=== PATIENT | female | born 1945 | race Caucasian/White ===

== ENCOUNTER → 2016-11-12 | Outpatient (CLI) | payer BC ==
[~2016-11-12] MED LIST: ASCA500 PO; ASPI81TA28 PO; CALCTAB7 PO; CYM/30 PO; GARL400T4 PO; IBUP-1050 PO; LISI-787 PO; LPT40 PO; MAGNTAB10 PO; MULT-190 PO; MULT-729 PO; OMEP20TA14 PO; QUET5TAB PO; ULT/50 PO
--- NOTE | 2016-11-12 16:04 | MAMMOGRAPHY REPORT ---
BILATERAL DIGITAL SCREENING MAMMOGRAM WITH CAD: 11/12/2016 CLINICAL HISTORY: Routine screening. Patient has no complaints. TECHNIQUE: Bilateral CC and MLO views were obtained. Current study was also evaluated with a Comput er Aided Detection (CAD) system. COMPARISON: Comparison is made to exams dated: 11/10/2015 mammogram, 11/09/2014 mammogram, 11/08/2013 saeid mogram, 11/06/2012 mammogram - [facility], 12/09/2008, and 12/15/2007. BREAST COMPOSITION: There are scattered areas of fibroglandular density in both breasts. FINDINGS: There is a 9 mm asymmetry in the superior, middle to posterior left breast, best seen on the MLO view. Although this could represent normal overlapping fibroglandular tissue, additional sp ot compression tomosynthesis views and possibly ultrasound are recommended. No other suspicious mass, architectural distortion or cluster of microcalcifications is seen. IMPRESSION: ACR BI-RADS CATEGORY 0: INCOMPLETE EVALUATION: NEED ADDITIONAL IMAGING EVALUATION The 9 mm asymmetry in the superior left breast needs additional evaluation. The patient will be called to schedule an appointment. Approximately 10% of breast cancers are not detected with mammography. A negative mammographic repor t should not delay biopsy if a clinically suggestive mass is present. Kayla Luna M.D. ay/:11/12/2016 15:46:04 Book Editor: Shante RILEY(Jesus)(Jo Ann), [facility] letter sent: Addl Imaging 0 BI-RADS Code: ACR BI-RADS Category 0: Incomplete Evaluation: Need Additional Imaging Evaluation
== END | disposition home or self-care (01) ==
LOC: C.MAMM 10:11
PROVIDERS: ATTEND Family Medicine
DX: Z12.31 Encounter for screening mammogram for malignant neoplasm of breast (principal); N64.89 Other specified disorders of breast

== ENCOUNTER → 2016-11-18 | Outpatient (CLI) | payer BC ==
[2016-11-18 17:52] LABS: BLOOD UREA NITROGEN 17 mg/dl (7-18); CALCIUM 9.3 mg/dl (8.5-10.1); CARBON DIOXIDE 29 mmol/L (21-32); CHLORIDE 105 mmol/L (98-107); GLUCOSE 118 mg/dl (70-99); POTASSIUM 3.3 mmol/L (3.5-5.1); SODIUM 144 mmol/L (136-145)
== END | disposition home or self-care (01) ==
LOC: C.LABPVFM 11:01
PROVIDERS: ATTEND Family Medicine
DX: E87.6 Hypokalemia (principal)

== ENCOUNTER → 2016-11-27 | Outpatient (CLI) | payer BC ==
--- NOTE | 2016-11-27 13:35 | MAMMOGRAPHY REPORT ---
UNILATERAL LEFT DIGITAL DIAGNOSTIC MAMMOGRAM TOMOSYNTHESIS AND TARGETED LEFT ULTRASOUND: 11/27/2016 CLINICAL HISTORY: 71 year-old woman called back from screening mammography for a 7 mm asymmetry in t he superior middle one third of the left breast, best seen on the MLO view. TECHNIQUE: Spot compression CC and MLO 2-D digital and tomosynthesis images of the left breast were obtained. COMPARISON: Comparison is made to exams dated: 11/12/2016 mammogram, 11/10/2015 mammogram, and 11/09/2014 mammogram - [facility]. BREAST COMPOSITION: There are scattered areas of fibroglandular density in the left breast. FINDINGS: The additional spot compression views of the left breast demonstrate complete effacement o f the 9 mm nodular asymmetry in the superior middle one third of the breast, best seen on the MLO vi ew. The parenchymal pattern on the spot compression MLO view appears very similar to prior availabl e mammograms suggesting it represents the patient's baseline. There is no focal area of architectur al distortion or a cluster of suspicious microcalcification. Reviewed ultrasound was performed in the superior left breast including the retroareolar breast. No rmal fibroglandular tissue is seen without a discrete solid or cystic mass. IMPRESSION: ACR BI-RADS CATEGORY 2: BENIGN, TARGETED ULTRASOUND ACR BI-RADS CATEGORY 2: BENIGN Effacement of the nodular asymmetry in the superior left breast, and no suspicious sonographic corre late identified. This most likely represented normal overlapping fibroglandular tissue. There is n o mammographic or targeted sonographic evidence of malignancy. A 1 year screening mammogram is recom mended. The patient has been verbally notified of the results. Approximately 10% of breast cancers are not detected with mammography. A negative mammographic repor t should not delay biopsy if a clinically suggestive mass is present. Kayla Luna M.D. ay/:11/27/2016 12:40:07 Funeral Pre Arrangement Counselor: Annabella ROME)(Jo Ann), [facility] letter sent: Normal 1/2 BI-RADS Code: ACR BI-RADS Category 2: Benign Ultrasound BI-RADS: ACR BI-RADS Category 2: Benign
== END | disposition home or self-care (01) ==
LOC: C.MAMM 10:28
PROVIDERS: ATTEND Family Medicine
DX: N64.9 Disorder of breast, unspecified (principal)

== ENCOUNTER → 2017-03-26 | Outpatient (CLI) | payer BC ==
[2017-03-26 17:25] LABS: BLOOD UREA NITROGEN 19 mg/dl (7-18); BUN/CREATININE RATIO 17.4 (10-20); CALCIUM 9.2 mg/dl (8.5-10.1); CARBON DIOXIDE 28 mmol/L (21-32); CHLORIDE 109 mmol/L (98-107); GLUCOSE 94 mg/dl (70-99); POTASSIUM 4.1 mmol/L (3.5-5.1); SODIUM 143 mmol/L (136-145)
[2017-03-26 17:28] LABS: CHOLESTEROL 173 mg/dl (0-200); CHOLESTEROL/HDL RATIO 3.6; HDL CHOLESTEROL 48 mg/dl; LDL CHOLESTEROL CALCULATED 87 mg/dl; TRIGLYCERIDES 191 mg/dl (0-150); VERY LOW DENSITY LIPOPROT CALC 38 mg/dl
[2017-03-26 18:25] LABS: LYME DISEASE AB IGG NEG (NEG); LYME DISEASE AB IGM NEG (NEG)
== END | disposition home or self-care (01) ==
LOC: C.LABPVFM 14:25
PROVIDERS: ATTEND Family Medicine
DX: Z00.00 Encounter for general adult medical examination without abnormal findings (principal); E78.2 Mixed hyperlipidemia; I10 Essential (primary) hypertension

== ENCOUNTER → 2017-09-22 | Outpatient (CLI) | payer BC ==
[2017-09-22 13:11] LABS: BLOOD UREA NITROGEN 17 mg/dl (7-18); BUN/CREATININE RATIO 15.7 (10-20); CALCIUM 9.3 mg/dl (8.5-10.1); CARBON DIOXIDE 30 mmol/L (21-32); CHLORIDE 107 mmol/L (98-107); CREATININE 1.11 mg/dl (0.60-1.20); GLUCOSE 104 mg/dl (70-99); POTASSIUM 3.6 mmol/L (3.5-5.1); SODIUM 142 mmol/L (136-145)
== END | disposition home or self-care (01) ==
LOC: C.LABPVFM 09:37
PROVIDERS: ATTEND Family Medicine
DX: I10 Essential (primary) hypertension (principal)

== ENCOUNTER → 2017-11-14 | Outpatient (CLI) | payer BC ==
--- NOTE | 2017-11-14 15:27 | MAMMOGRAPHY REPORT ---
BILATERAL DIGITAL SCREENING MAMMOGRAM TOMOSYNTHESIS WITH CAD: 11/14/2017 CLINICAL HISTORY: Routine screening. TECHNIQUE: Breast tomosynthesis in addition to standard 2D mammography was performed. Current study was also evaluated with a Computer Aided Detection (CAD) system. COMPARISON: Comparison is made to exams dated: 11/27/2016 mammogram, 11/12/2016 mammogram, 11/10/2015 saeid mogram, 11/09/2014 mammogram, 11/08/2013 mammogram, and 11/06/2012 mammogram - [facility] . BREAST COMPOSITION: There are scattered areas of fibroglandular density in both breasts. FINDINGS: No suspicious masses, calcifications, or areas of architectural distortion are noted in ei ther breast. There has been no significant interval change compared to prior exams. IMPRESSION: ACR BI-RADS CATEGORY 1: NEGATIVE There is no mammographic evidence of malignancy. A 1 year screening mammogram is recommended. The pa tient will receive written notification of the results. Approximately 10% of breast cancers are not detected with mammography. A negative mammographic report should not delay biopsy if a clinically suggestive mass is present. Cata Tan M.D. ah/:11/14/2017 14:22:23 Gift Basket Packer: Brooks RILEY(Jesus)(M), [facility] letter sent: Normal 1/2 BI-RADS Code: ACR BI-RADS Category 1: Negative
== END | disposition home or self-care (01) ==
LOC: C.MAMM 10:06
PROVIDERS: ATTEND Family Medicine
DX: Z12.31 Encounter for screening mammogram for malignant neoplasm of breast (principal)

== ENCOUNTER 2023-11-04 07:03 | Observation (INO) ==
--- NOTE | 2023-10-01 11:40 | PAT Medication Instructions ---
Medication Instructions Date of Service October 01, 2023 Home Medications Medication Instructions Recorded aspirin 81 mg tablet,delayed 81 mg PO QAM #30 tabs 07/06/19 release clonazepam 0.5 mg tablet (Klonopin) 0.5 mg PO DAILY PRN depression #60 07/06/19 tabs duloxetine 30 mg capsule,delayed 30 mg PO QAM #30 caps 07/06/19 release (Cymbalta) ibuprofen 200 mg tablet (Advil) 200 mg PO Q6H PRN pain #120 tabs 07/06/19 vbgelybt-zhrunlb-gwt-iron 18 mg-FA 1 tab PO QAM #30 tabs 07/06/19 400 mcg-vit K 80 mcg-hrb#244 tablet ([employer]) quetiapine 50 mg tablet (Seroquel) 50 mg PO HS #60 tabs 07/06/19 vit C,E,zinc,copper-hyadq9l 250 1 cap PO QAM #30 caps 07/06/19 mg-lutein 5 mg-zeaxanthin 1 mg capsule (Ocuvite Adult 50 Plus) aspirin 81 mg tablet,delayed release 81 mg PO QAM clonazepam 0.5 mg tablet (Klonopin) 0.5 mg PO DAILY PRN duloxetine 30 mg capsule,delayed release (Cymbalta) 30 mg PO QAM ibuprofen 200 mg tablet (Advil) 200 mg PO Q6H PRN eorcovre-culremk-fea-iron 18 mg-FA 400 mcg-vit K 80 mcg-hrb#244 tablet ([employer]) 1 tab PO QAM quetiapine 50 mg tablet (Seroquel) 50 mg PO HS vit C,E,zinc,copper-rwqky9y 250 mg-lutein 5 mg-zeaxanthin 1 mg capsule (Ocuvite Adult 50 Plus) 1 cap PO QAM Lactobacillus acidophilus 250 million cell capsule 100 mmu cells PO QAM mecobalamin (vitamin B12) 1,000 mcg chewable tablet 1,000 mcg PO QAM atorvastatin 40 mg tablet 40 mg PO QAM garlic 400 mg tablet 400 mg PO QAM lisinopril 10 mg-hydrochlorothiazide 12.5 mg tablet 1 tab PO QAM magnesium oxide 400 mg PO QAM omeprazole 20 mg tablet,delayed release 20 mg PO QAM potassium chloride 20 mEq tablet,extended release 20 meq PO QAM Check with prescriber, continue as usual if prescriber has no other recommendations quetiapine 50 mg tablet (Seroquel) 50 mg PO HS Continue as directed clonazepam 0.5 mg tablet (Klonopin) 0.5 mg PO DAILY PRN(if needed) ASK your surgeon for instructions ibuprofen 200 mg tablet (Advil) 200 mg PO Q6H PRN ASK your prescriber and surgeon aspirin 81 mg tablet,delayed release 81 mg PO QAM STOP taking 2 weeks before surgery (or as soon as possible if surgery is within 2 weeks) vit C,E,zinc,copper-pkelz0w 250 mg-lutein 5 mg-zeaxanthin 1 mg capsule (Ocuvite Adult 50 Plus) 1 cap PO QAM garlic 400 mg tablet 400 mg PO QAM DO NOT take the morning of surgery awfkmgdo-ikkseii-wfr-iron 18 mg-FA 400 mcg-vit K 80 mcg-hrb#244 tablet ([employer]) 1 tab PO QAM Lactobacillus acidophilus 250 million cell capsule 100 mmu cells PO QAM mecobalamin (vitamin B12) 1,000 mcg chewable tablet 1,000 mcg PO QAM lisinopril 10 mg-hydrochlorothiazide 12.5 mg tablet 1 tab PO QAM magnesium oxide 400 mg PO QAM potassium chloride 20 mEq tablet,extended release 20 meq PO QAM Take morning of surgery With a small sip of water, OTHERWISE NOTHING TO EAT OR DRINK AFTER MIDNIGHT: duloxetine 30 mg capsule,delayed release (Cymbalta) 30 mg PO QAM atorvastatin 40 mg tablet 40 mg PO QAM omeprazole 20 mg tablet,delayed release 20 mg PO QAM Other Notes If you have any questions please call us at [phone] or [phone] or [phone] or [phone]
--- NOTE | 2023-10-10 09:45 | Anesthesiology Consultation ---
Date of Service October 10, 2023 Assessment & Plan (1) Encounter for pre-operative examination: Chart Review Chart Review: Acceptable Risk for Surgery (pending routine PCP visit ) and Patient seen in Pre Admission Testing - Awaiting routine PCP appt 10/27/23 ([place]) - Patient is NOT an ideal OPJ candidate due to age and patient wanting to stay overnight (surgeon's office change patient to 23 hour obs) Per PAT appt on 10/10/23, no recent illness/disease exposures, illness related symptoms, or recent illness/disease positive tests. Will leave to surgeon's discretion if preop Covid testing needed Teaching & Discussion Pre-Anesthesia Teaching/Discussion Notes: Instructed NPO after midnight before surgery,except medications with 15 cc of water. Medication instructions provided according to the PAT guidelines. History Surgery Operation Date: 11/04/23 11:25 Proposed Procedures p Right Reverse Total Shoulder Arthroplasty - Pablo Caldwell, Height/Weight Height: 5 ft 5 in Weight: 71.6 kg Allergies Allergy/AdvReac Type Severity Reaction Status Date / Time Sulfa (Sulfonamide Allergy Severe "SULFA Verified 09/16/23 09:48 Antibiotics) DRUGS": RASH AND ANAPHYLAXIS acetaminophen [From Percocet] Allergy Unknown Flushing. Verified 10/01/23 09:04 Rash oxycodone [From Percocet] Allergy Unknown Flushing. Verified 10/01/23 09:04 Rash Medications Home Medications Medication Instructions Recorded Confirmed Last Taken aspirin 81 mg tablet,delayed 81 mg PO QAM #30 tabs 07/06/19 10/01/23 Unknown release clonazepam 0.5 mg tablet (Klonopin) 0.5 mg PO DAILY PRN depression #60 07/06/19 10/01/23 Unknown tabs duloxetine 30 mg capsule,delayed 30 mg PO QAM #30 caps 07/06/19 10/01/23 Unknown release (Cymbalta) ibuprofen 200 mg tablet (Advil) 200 mg PO Q6H PRN pain #120 tabs 07/06/19 Unknown gcyxslsd-etmezxo-gva-iron 18 mg-FA 1 tab PO QAM #30 tabs 07/06/19 10/01/23 Unknown 400 mcg-vit K 80 mcg-hrb#244 tablet ([employer]) quetiapine 50 mg tablet (Seroquel) 50 mg PO HS #60 tabs 07/06/19 10/01/23 Unknown vit C,E,zinc,copper-ofahk7h 250 1 cap PO QAM #30 caps 07/06/19 10/01/23 Unknown mg-lutein 5 mg-zeaxanthin 1 mg capsule (Ocuvite Adult 50 Plus) Lactobacillus acidophilus 250 100 mmu cells PO QAM 10/24/22 10/01/23 Unknown million cell capsule mecobalamin (vitamin B12) 1,000 1,000 mcg PO QAM 10/24/22 10/01/23 Unknown mcg chewable tablet atorvastatin 40 mg tablet 40 mg PO QAM 10/01/23 10/01/23 Unknown garlic 400 mg tablet 400 mg PO QAM 10/01/23 10/01/23 Unknown lisinopril 10 1 tab PO QAM 10/01/23 10/01/23 Unknown mg-hydrochlorothiazide 12.5 mg tablet magnesium oxide 400 mg PO QAM 10/01/23 10/01/23 Unknown omeprazole 20 mg tablet,delayed 20 mg PO QAM 10/01/23 10/01/23 Unknown release potassium chloride 20 mEq 20 meq PO QAM 10/01/23 10/01/23 Unknown tablet,extended release Past Medical History Medical History (Updated 10/13/23 @ 09:05 by Kiarra Coughlin PA-C) Elevated hemoglobin A1c Per records- Hgb A1C 5.8 on 10/10/23 History of ectopic s/p salpingectomy GERD (gastroesophageal reflux disease) Well controlled and stable History of uterine cancer dx'd > 5 years ago. 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 echo "many many years ago" at [place] Hx of rheumatic fever as a child No significant murmur noted at PAT exam 10/10/23 HTN (hypertension) Anxiety (12/07/12) Peripheral neuropathy Restless leg syndrome Exercise / Class Metabolic Activity II 4-5 Yardwork/Stairs/Walk up hill (one flight of stairs - no chest pain or SOB ) Past Family History Family History Family/Other Breast cancer cousin Father Myocardial infarction Brother Diabetes Myocardial infarction Other No family history of adverse response to anesthesia Denies family history of Ovarian cancer Prostate cancer Colorectal cancer Past Surgical History Surgical History History of laparoscopy History of History of total abdominal hysterectomy and bilateral salpingo-oophorectomy [place] teeth extracted Previous back surgery x 3 H/O shoulder surgery BL Past Anesthesia History No Hx of Anesthesia Complications and No Family Hx of Anesthesia Complications History of PONV No Hx of PONV and No Hx of Motion Sickness Social History Smoking Status: Never smoker Do You Dip or Chew Tobacco: No Hx Alcohol Use: No Hx Substance Use: No substance use type: does not use Review of Systems - Mild STEELE- rarely- with strenuous activity- works on farm/hunts/fishes/yardwork - S/p blood transfusion with ectopic Patient denies chest pain, shortness of breath, cough, wheezing, palpitations. No hx of seizures, stroke, [place], apnea/snoring. No hx of blood clots Physical Exam Vital Signs VITALS BP 150/82 (manually) P 87 TEMP 97.7 SP02 97% RESP 16 Constitutional no acute distress ENMT Mouth: no TMJ clicking Thyromental Distance: > or= 3.5 Finger Breadths (3.5) Mallampati Class: II Neck neck extension not limited Respiratory normal respiratory effort; no respiratory distress Auscultation: lungs clear to auscultation bilaterally; no wheezes Cardiovascular Rate/Rhythm: regular rate and regular rhythm Heart Sounds: no murmur Vessels: no carotid bruit No significant murmur noted at PAT exam 10/10/23 Musculoskeletal Spine: + pain with cervical ROM Extremities: extremities normal to inspection Psychiatric Orientation: alert Lab Results Anesthesia Preop Results Results Anesthesia Widget: WBC 6.75 K/ul (4.8-10.8) 10/10/23 Hgb 13.8 g/dl (12.0-16.0) 10/10/23 Hct 38.9 % (37.0-47.0) 10/10/23 Plt 154 K/uL (130-400) 10/10/23 Na 142 mmol/L (136-145) 10/10/23 K 3.5 mmol/L (3.5-5.1) 10/10/23 Cl 106 mmol/L (98-107) 10/10/23 CO2 30 mmol/L (21-32) 10/10/23 BUN 18 mg/dl (6-23) 10/10/23 Creat 0.89 mg/dl (0.6-1.2) 10/10/23 Glucose Level 114 mg/dl (70-99(Fasting)) H 10/10/23 PT 10.9 Seconds (9.0-12.0) 10/10/23 PTT 25 Seconds (21-31) 10/10/23 INR 1.0 (0.9-1.1) 10/10/23 HA1c 5.8 % (4.5-5.6) H 10/10/23 Blood Type A Positive 10/10/23 Antibody Screen NEGATIVE 10/10/23 Testing Electrocardiogram Date: 10/10/23 Findings: + NSR @ (88bpm) Suspect V2-V3 reversal Low voltage QRS Poor R wave progression, consider anterior [place] vs lead placement vs LVH When compared to EKG from April 25, 2016- PACs are no longer present, questionable change in initial forces of anterior leads per cardio (Spoke with Dr. Colin- recommends repeat EKG DOS) Chest X-Ray Date: 10/10/23 FINDINGS: Cardiomediastinal and hilar silhouettes are within normal limits. No pneumothorax, pleural effusion, airspace consolidation or pulmonary edema. Mild chronic interstitial coarsening of the lung bases. Surgical anchor within the right humeral head. Bones appear grossly intact. IMPRESSION: No acute process.
--- NOTE | 2023-10-30 12:47 | History & Physical Report ---
Date of Service October 30, 2023 Assessment & Plan (1) Rotator cuff arthropathy of right shoulder: We will proceed with a right reverse shoulder arthroplasty. Postoperatively she will be seen placed in a sling and kept overnight hospital for postop medical management. She plans to have the hospital set up home health before discharge. History of Present Illness Chief Complaint: Cuff tear arthropathy of right shoulder. Primary Care Provider: Albina Dow MD Mayelin is a pleasant 77-year-old female who had a right rotator cuff repair done by Dr. Zaragoza in 2008. She initially did well with that. She then began having more pain. She was then pulling a ripcord. Her right shoulder has been doing worse and worse. She is unable to sleep at night. She is having trouble doing anything away from her body or up overhead. She has a lot of weakness in her shoulder. X-ray shows signs of cuff tear arthropathy. I sent her for an MRI. 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 After failed conservative treatment, she has elected proceed with a right reverse shoulder arthroplasty. Allergies Allergy/AdvReac Type Severity Reaction Status Date / Time Sulfa (Sulfonamide Allergy Severe "SULFA Verified 10/27/23 09:03 Antibiotics) DRUGS": RASH AND ANAPHYLAXIS acetaminophen [From Percocet] Allergy Unknown Flushing. Verified 10/27/23 09:03 Rash oxycodone [From Percocet] Allergy Unknown Flushing. Verified 10/27/23 09:03 Rash Home Medications Medication Instructions Recorded Confirmed Type aspirin 81 mg tablet,delayed 81 mg PO QAM #30 tabs 07/06/19 10/27/23 Rx release ibuprofen 200 mg tablet (Advil) 200 mg PO Q6H PRN pain #120 tabs 07/06/19 10/27/23 Rx muyjhbfr-jrnubdx-cqj-iron 18 mg-FA 1 tab PO QAM #30 tabs 07/06/19 10/27/23 Rx 400 mcg-vit K 80 mcg-hrb#244 tablet ([employer]) vit C,E,zinc,copper-enihc3s 250 1 cap PO QAM #30 caps 07/06/19 10/27/23 Rx mg-lutein 5 mg-zeaxanthin 1 mg capsule (Ocuvite Adult 50 Plus) Lactobacillus acidophilus 250 100 mmu cells PO QAM 10/24/22 10/27/23 History million cell capsule mecobalamin (vitamin B12) 1,000 1,000 mcg PO QAM 10/24/22 10/27/23 History mcg chewable tablet garlic 400 mg tablet 400 mg PO QAM 10/01/23 10/27/23 History lisinopril 10 1 tab PO QAM 10/01/23 10/27/23 History mg-hydrochlorothiazide 12.5 mg tablet magnesium oxide 400 mg PO QAM 10/01/23 10/27/23 History omeprazole 20 mg tablet,delayed 20 mg PO QAM 10/01/23 10/27/23 History release potassium chloride 20 mEq 20 meq PO QAM 10/01/23 10/27/23 History tablet,extended release atorvastatin 40 mg tablet 40 mg PO QAM #90 tabs 10/27/23 10/27/23 Rx clonazepam 0.5 mg tablet (Klonopin) 0.5 mg PO DAILY PRN depression #60 10/27/23 10/27/23 Rx tabs duloxetine 60 mg capsule,delayed 60 mg PO DAILY #90 caps 10/27/23 10/27/23 Rx release quetiapine 50 mg tablet (Seroquel) 50 mg PO HS #90 tabs 10/27/23 10/27/23 Rx Past Med/Surg History Medical History Elevated hemoglobin A1c Per records- Hgb A1C 5.8 on 10/10/23 History of ectopic s/p salpingectomy GERD (gastroesophageal reflux disease) Well controlled and stable History of uterine cancer dx'd > 5 years ago. 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 "many many years ago" at [place] Hx of rheumatic fever as a child No significant murmur noted at PAT exam 10/10/23 HTN (hypertension) Anxiety (12/07/12) Peripheral neuropathy Restless leg syndrome Surgical History History of laparoscopy History of History of total abdominal hysterectomy and bilateral salpingo-oophorectomy [place] teeth extracted Previous back surgery x 3 H/O shoulder surgery BL Family History Family/Other Breast cancer cousin Father Myocardial infarction Brother Diabetes Myocardial infarction Other No family history of adverse response to anesthesia Denies family history of Ovarian cancer Prostate cancer Colorectal cancer Social History Smoking Status: Never smoker Second Hand Exposure: No; Do You Dip or Chew Tobacco: No; Hx Alcohol Use: No Hx Substance Use: No Preferred Language: Tuvaluan Communication Ability: Effective Visual Impairment: Limited Hearing Ability: Normal Synthetic Cloth Binding Cutter Required: No Beliefs That Will Affect Care: None marital status: Current Living Situation: Spouse current occupational status: retired How many Children do You have: 2 How many Children do You have Comment: Pt. states that she had 1 miscarriage. Feels Safe at Home: Yes Safety Concerns: Feels Safe At This Time Childhood Exposure to Second-Hand Smoke: No Diet: regular caffeine: Yes (coffee) during the past year weight has: remained stable Dental Care, Regularly: Yes Physical Activity Frequency: Daily Seatbelt Use: always Sunscreen Use: No Do you think of yourself as: straight/heterosexual Gender Identity: Female Assistive Devices: Glasses Assistive Devices Comment: glasses for reading Review of Systems All systems reviewed & are unremarkable except as noted in HPI & below. Physical Exam On physical examination of the right shoulder, she has decreased range of motion weakness throughout.. Constitutional WD/WN, vitals as above Eyes PERRL, conjunctivae normal, anicteric sclerae ENMT external ear and nose normal, oropharynx normal Neck trachea midline, no thyromegaly Respiratory normal respiratory effort Cardiovascular RRR, no murmur, no edema Gastrointestinal (Abdomen) normal bowel sounds, soft, nontender, no hepatosplenomegaly Psychiatric A+Ox3, euthymic affect Results & Data Results & Data Laboratory Results . Diagnostic Findings X-rays of the right shoulder do show signs of osteoarthritis with a little bit of superior migration of the humeral head and the glenoid. MRI of the right shoulder shows a chronic retracted rotator cuff tear.. PG Care Time/CCT Total # of Minutes Spent Total Time Spent with Patient: Total time spent is greater than 50% in coordination of care (as documented) at patient's floor/unit and/or counseling patient: Coding Level of Care Code None Diagnoses Rotator cuff arthropathy of right shoulder M12.811
[~2023-11-04 07:03] MED LIST changes: +ACETAMINOPHEN 500 MG TAB PO SCH; +ALLERGY Noted to ORDERED Medication SCH; -ASCA500 PO; -ASPI81TA28 PO; +BUPIVACAINE 0.5 % 5 MG/1 ML PF 10ML VIAL ONE; -CALCTAB7 PO; -CYM/30 PO; +FAMOTIDINE 20 MG TAB PO SCH; +GABAPENTIN 300 MG CAP PO SCH; -GARL400T4 PO; -IBUP-1050 PO; -LISI-787 PO; -LPT40 PO; +LR 15ML/HR IV SCH; +LR 60ML/HR IV SCH; -MAGNTAB10 PO; -MULT-190 PO; -MULT-729 PO; -OMEP20TA14 PO; -QUET5TAB PO; +ROPIV 0.5% 246mg, Ketorolac 30mg, EPINEPHrine 0.5mg in NSS INFIL SCH; +TRANEXAMIC ACID 1,000 MG **IV Intra-op IV SCH; +TRANEXAMIC ACID 1,000 MG **IV Pre-op IV SCH; -ULT/50 PO; +ceFAZolin 2000MG 2,000 MG/15 ML SYR IV SCH
[2023-11-04] MEDS ORDERED: ACETAMINOPHEN 500 MG TAB ONE (07:20)
[2023-11-04] MEDS ORDERED: LIDOCAINE 2% 2 ML VIAL/AMP(20MG/ML) INFIL ONE (07:27)
[2023-11-04] MEDS ORDERED: DEXAMETHASONE SOD INJ 4 MG/ML VIAL ONE (07:27)
[2023-11-04] MEDS ORDERED: ROCURONIUM BROMIDE 10 MG/ML 5 ML VIAL IV ONE (07:27)
[2023-11-04] MEDS ORDERED: SUCCINYLCHOLINE CHLORIDE 20 MG/ML 10 ML VIAL IV ONE (07:27)
[2023-11-04] MEDS ORDERED: fentaNYL citrate PF 100 MCG/2 ML VIAL ONE (07:27)
[2023-11-04] MEDS ORDERED: PROPOFOL IV EMULSION 10 MG/ML 20 ML VIAL IV ONE (07:27)
[2023-11-04] MEDS ORDERED: MIDAZOLAM HCL 1 MG/ML 2ML VIAL ONE (07:27)
[2023-11-04] MEDS ORDERED: Nursing to Pharmacy Communication SCH (07:30)
[2023-11-04] MEDS ORDERED: ePHEDrine sulfate 50 MG/ML AMP ONE (07:37)
[2023-11-04] MEDS ORDERED: fentaNYL citrate PF 100 MCG/2 ML VIAL IV PRN (08:30)
[2023-11-04] MEDS ORDERED: ePHEDrine sulfate 50 MG/ML AMP IV PRN (08:30)
[2023-11-04] MEDS ORDERED: ONDANSETRON INJ 2 MG/ML 2 ML VIAL IV PRN ×2 (08:30→11:14)
[2023-11-04] MEDS ORDERED: HYDROmorphone INJ 1 MG/ML SYRINGE IV PRN (08:30)
[2023-11-04] MEDS ORDERED: ATROPINE SULFATE 0.1 MG/ML 10ML SYR IV PRN (08:30)
[2023-11-04] MEDS ORDERED: ORTHO JOINT ANESTHETIC ONE (08:34)
--- NOTE | 2023-11-04 08:39 | History & Physical Bridge Note ---
Date of Service November 04, 2023 History & Physical Bridge Note I have examined the patient, reviewed the History & Physical and in the interval since the performance of the History & Physical I have noted the following changes of clinical significance: no changes noted
[2023-11-04] MEDS ORDERED: GLYCOPYRROLATE 0.2 MG/ML VIAL ONE (09:26)
--- NOTE | 2023-11-04 10:01 | Operative Report ---
PG Post Operative Report Pre & Post Diagnosis Operation Date: 11/04/23 08:40 Pre-Op Diagnosis: Right Shoulder cuff tear arthropathy with tendinopathy long head of the biceps tendon Post-Op Diagnosis: Right Shoulder cuff tear arthropathy with tendinopathy long head of the biceps tendon I identified the patient and participated in the time-out.: Yes Procedure Operation Date: 11/04/23 08:40 Actual Procedures p Right Reverse Total Shoulder Arthroplasty(Right) with open biceps tenodesis as a distinct and separate procedure (modifier 59)- Pablo Caldwell DO Surgeon Pablo Caldwell DO Public Safety Teacher Woody Greene PA-C Estimated Blood Loss 150 Findings Consistent with Post-Op Diagnosis Specimens Right humeral head Description of Procedure A CPT code modifier 59: The long head of the biceps tendon was enlarged and inflamed consistent with tendinopathy. A tenodesis was opted. This was a separate and distinct portion of the procedure. For these reasons, a CPT code modifier 59 will be added to this case. Implants used: I used a [employer] Comprehensive reverse total shoulder arthroplasty system with a size 14 press fit micro humeral stem, a +6 offset humeral tray and a standard humeral bearing, a 25 mm baseplate with a 6.5 mm central screw and superior and inferior locking screws, and a size 36 mm eccentric glenosphere. Mayelin arrived at [facility] for the above procedure. She was seen in the preoperative holding area and the operative extremity was identified and signed. She was given a preoperative antibiotic, TXA, and an interscalene nerve block. She was taken back to the operating room, laid on table in supine position, and put under general anesthesia. She was then put into the beachchair position. The shoulder was then prepped and draped in sterile fashion. A timeout was done and the patient and the operative extremity was properly identified. A deltopectoral approach was used. Dissection was taken down through the fascia and the deltoid was retracted laterally and the conjoined tendon was retracted medially. The anterior shoulder was exposed. The biceps groove was opened up and the biceps tendon was examined extensively. The biceps tendon demonstrated enlargement and inflammatory changes consistent with longstanding inflammation in the context of osteoarthritis and cuff arthropathy. The long head of the biceps tendon was then tenodesed to the upper border of the pectoralis major. This was a separate and distinct portion of the procedure. The subscapularis was then directly released off the lesser tuberosity with a peel technique. The inferior capsule was released and the humeral head was dislocated. A canal finding reamer was sent down the center of the humeral canal. Sequential reaming up to a size 14 reamer was done. Off that reamer, a proximal humeral resection guide was placed. The proximal humerus was resected at 135 of inclination and 25 of retroversion. Osteophytes were then removed and the glenoid was exposed. Time was spent doing a complete capsular and labral release. The glenoid guide was then placed in the inferior aspect of the glenoid. A 3.2 mm Steinmann pin was then placed into the glenoid vault at 10 of inclination. The glenoid baseplate was then reamed. The final size 25 mm baseplate was then impacted in the place. A 6.5 mm central screw was then placed followed by superior and inferior locking screws. A 36 mm eccentric glenosphere was then impacted into place. Surrounding soft tissues were then injected with 100 cc an orthopedic pain control cocktail. The proximal humerus was then exposed. Sequential broaching of the humerus up to a size 14 broach was done. Off that b mijares a +6 offset humeral tray was trialed. The shoulder was then reduced, brought through a full range of motion, and felt to be stable. The shoulder was then dislocated and the broach was removed. The final size 14 micro press-fit humeral stem was then impacted into place. A standard humeral bearing was then snapped onto a +6 offset humeral tray. The humeral tray was then impacted onto the humeral stem. The shoulder was once again reduced, brought through a full range of motion, and felt to be stable. The subscapularis was then tenodesed back to the lesser tuberosity with transosseous FiberWire sutures and side to side sutures with the arm in 45 of external rotation. A dilute betadyne lavage was then done for 3 minutes. The joint was then irrigated with normal saline solution. Hemostasis was obtained. The interval was closed with 2-0 Vicryl suture. The skin was then closed with 2-0 Vicryl and kimberly. A Silverlon dressing was placed and the arm was rested in a regular arm sling. She was then extubated and transferred to a hospital bed. She taken to the postanesthesia care unit in stable condition. She tolerated the procedure well. Woody Greene PA-C, was present for the entire procedure. He was critical for patient positioning, prepping, draping, retraction exposure, wound closure and application of sterile dressing. I attest to the content of the Intraoperative Record and any orders documented therein. Any exceptions are noted below.
[2023-11-04] MEDS ORDERED: HYDROCODONE/ACETAMOPHEN 5/325MG TAB PO PRN (11:14)
[2023-11-04] MEDS ORDERED: SODIUM CHLORIDE 0.9% 1,000 ML IV SCH (11:14)
[2023-11-04] MEDS ORDERED: traMADol HCL 50 MG TABLET PO PRN (11:14)
[2023-11-04] MEDS ORDERED: clonazePAM 0.5 MG TAB PO PRN (11:14)
[2023-11-04] MEDS ORDERED: bisacodyL 10 MG SUPP PR PRN (11:14)
[2023-11-04] MEDS ORDERED: METOCLOPRAMIDE HCL INJ 5 MG/ML 2 ML VIAL IV PRN (11:14)
[2023-11-04] MEDS ORDERED: MAGNESIUM HYDROXIDE SUSP 30 ML UDC PO PRN (11:14)
[2023-11-04] MEDS ORDERED: NALOXONE HCL 0.4 MG/1 ML VIAL/CARP IV PRN (11:14)
[2023-11-04] MEDS ORDERED: HYDROmorphone INJ 0.5 MG/0.5 ML SYR IV PRN (11:14)
--- NOTE | 2023-11-04 11:26 | Electrocardiogram Report ---
Test Reason : Blood Pressure : / mmHG Vent. Rate : 093 BPM Atrial Rate : 093 BPM P-R Int : 208 ms QRS Dur : 086 ms QT Int : 380 ms P-R-T Axes : 035 005 062 degrees QTc Int : 472 ms Normal sinus rhythm Nonspecific T wave abnormality Prolonged QT Abnormal ECG When compared with ECG of 10-OCT-2023 10:01, Minimal criteria for Anterior infarct are no longer Present Nonspecific T wave abnormality now evident in Anterolateral leads Confirmed by Everardo Cooper ([id number]) on 11/04/2023 11:26:13 AM Referred By: Pablo Caldwell Confirmed By:Everardo Cooper
[2023-11-04] MEDS: KETOROLAC TROMETHAMINE 15 MG/ML VIAL IV SCH ×2 (11:57→17:04)
[2023-11-04] MEDS ORDERED: INFLUENZA VACCINE HIGH-DOSE (HD-IIV4) PF 65+ 0.7mL SYR IM ONE (12:48)
--- NOTE | 2023-11-04 14:26 | XRay Report ---
RIGHT SHOULDER 2 VIEWS CLINICAL HISTORY: Postoperative examination. FINDINGS: 2 portable views of the right shoulder are compared to study dated 06/17/2023. The skeletal structures are osteopenic. A right shoulder arthroplasty is in near anatomic alignment. No fracture i s seen. Skin clips, subcutaneous gas, and soft tissue swelling overlying the right shoulder are expec joaquin postsurgical changes. Atelectasis is noted at the right lung base. IMPRESSION: Expected postsurgical findings status post right shoulder arthroplasty. No fracture is se en. Electronically signed by: Robert Guan M.D. 11/04/2023 2:25 PM
--- NOTE | 2023-11-04 14:29 | Electrocardiogram Report ---
Test Reason : Blood Pressure : / mmHG Vent. Rate : 097 BPM Atrial Rate : 097 BPM P-R Int : 224 ms QRS Dur : 088 ms QT Int : 368 ms P-R-T Axes : 035 002 031 degrees QTc Int : 467 ms Sinus rhythm with 1st degree A-V block Septal infarct , age undetermined Abnormal ECG When compared with ECG of 04-NOV-2023 07:31, Septal infarct is now Present Confirmed by Everardo Cooper ([id number]) on 11/04/2023 2:29:25 PM Referred By: Pablo Caldwell Confirmed By:Everardo Cooper
[2023-11-04] MEDS: ACETAMINOPHEN 500 MG TAB PO SCH ×2 (15:05→21:20)
[2023-11-04] MEDS: ceFAZolin 2000MG 2,000 MG/15 ML SYR IV SCH (16:18)
--- NOTE | 2023-11-04 18:47 | Hospitalist Consultation ---
Date of Consultation November 04, 2023 Assessment & Plan (1) Sinus tachycardia: -Mild sinus tachycardia in 100s noted after surgery today -Most likely reactive/compensatory tachycardia in immediate postoperative setting given pain + component of volume depletion -Low suspicion for infectious process or postoperative arrhythmia at present -Telemetry monitoring overnight -Will check CBC, BMP + Mg in AM -Continue IVF repletion + pain control per orthopedics (2) Status post reverse total replacement of right shoulder: -Postoperative management per orthopedics (3) HTN (hypertension): -Mildly elevated BP since surgery, likely due to pain -Continue lisinopril/HCTZ, no medication adjustment needed -Anticipate some increase in BP with dexamethasone administration ordered by orthopedics, monitor BP (4) HLD (hyperlipidemia): -Continue atorvastatin (5) Prediabetes: -Deferring basal/bolus insulin -Diet-controlled -Check glucose in AM with BMP (6) Peripheral neuropathy: -Continue duloxetine, cyanocobalamin (7) Depression: -Continue duloxetine (8) Anxiety: -Continue duloxetine -Continue Klonopin PRN per home regimen (9) GERD (gastroesophageal reflux disease): -Continue pantoprazole (10) Insomnia: -Continue Seroquel (11) On aspirin at home: -Pt does take aspirin daily due to FMH of [place] in brother, though she was never advised by a physician to do this -May continue daily aspirin, currently little concern for bleeding/hemorrhage Plan FENGI: Regular Code status: Full DVT prophylaxis: Per orthopedic primary Isolation: None Unit: Medical/surgical with telemetry Disposition planning: Home with home health per orthopedic note Supervising Physician Co-Signing Physician Notes I personally saw and examined the patient. I independently reviewed the labs, EKG, imaging, problem list, medication list, past medical history and family history. I verified all de león points and agree with resident physician Dr Deepthi Mcfarland, with the following exceptions and/or additions: 78 year old female POD#0 Right Reverse Total Shoulder Arthroplasty. Estimated blood loss 150ml. No acute concerns or questions from the patient. Consulted for tachycardia. She denies any chest pain, shortness of breath or palpitations. EKG with sinus tachycardia. O/E HS increased rate, regular rhythm, no murmurs, Chest CTAB, Abdo SNT A/P Sinus tachycardia - suspect just post operative, no specific intervention needed, continue routine post operative IV fluids, routine pain control per orthopedics History of Present Illness Reason for Consultation: Tachycardia Requesting Physician: JESUS Medrano DO Attending Physician: Pablo Caldwell DO History of Present Illness Pt is 78 yo F with PMH HTN, HLD, prediabetes, peripheral neuropathy, GERD, depression, anxiety, previous R rotator cuff repair 2009 s/p R reverse TSA now POD0. Hospitalist consulted for tachycardia. Pt underwent R reverse TSA this AM, uncomplicated. Reports feeling well overall though has had some R shoulder pain all day which does improve with PRN medications. She has had elevated HR all day as well, though she denies palpitations, chest pain, lightheadedness or dyspnea. Denies any previous history of arrhythmias or FMH of such. She has been trying to hydrate throughout the day while also receiving IV fluids. No other acute complaints reported at time of evaluation. Allergies Allergy/AdvReac Type Severity Reaction Status Date / Time Sulfa (Sulfonamide Allergy Severe "SULFA Verified 11/04/23 07:25 Antibiotics) DRUGS": RASH AND ANAPHYLAXIS oxycodone [From Percocet] Allergy Unknown Flushing. Verified 11/04/23 07:25 Rash Home Medications Medication Instructions Recorded Confirmed Type aspirin 81 mg tablet,delayed 81 mg PO QAM #30 tabs 07/06/19 11/04/23 Rx release ibuprofen 200 mg tablet (Advil) 200 mg PO Q6H PRN pain #120 tabs 07/06/19 11/04/23 Rx inpuzpic-pzwlzht-olu-iron 18 mg-FA 1 tab PO QAM #30 tabs 07/06/19 11/04/23 Rx 400 mcg-vit K 80 mcg-hrb#244 tablet ([employer]) vit C,E,zinc,copper-chzdl6t 250 1 cap PO QAM #30 caps 07/06/19 11/04/23 Rx mg-lutein 5 mg-zeaxanthin 1 mg capsule (Ocuvite Adult 50 Plus) Lactobacillus acidophilus 250 100 mmu cells PO QAM 10/24/22 11/04/23 History million cell capsule mecobalamin (vitamin B12) 1,000 1,000 mcg PO QAM 10/24/22 11/04/23 History mcg chewable tablet garlic 400 mg tablet 400 mg PO QAM 10/01/23 11/04/23 History lisinopril 10 1 tab PO QAM 10/01/23 11/04/23 History mg-hydrochlorothiazide 12.5 mg tablet magnesium oxide 400 mg PO QAM 10/01/23 11/04/23 History omeprazole 20 mg tablet,delayed 20 mg PO QAM 10/01/23 11/04/23 History release potassium chloride 20 mEq 20 meq PO QAM 10/01/23 11/04/23 History tablet,extended release atorvastatin 40 mg tablet 40 mg PO QAM #90 tabs 10/27/23 11/04/23 Rx clonazepam 0.5 mg tablet (Klonopin) 0.5 mg PO DAILY PRN depression #60 10/27/23 11/04/23 Rx tabs duloxetine 60 mg capsule,delayed 60 mg PO DAILY #90 caps 10/27/23 11/04/23 Rx release quetiapine 50 mg tablet (Seroquel) 50 mg PO HS #90 tabs 10/27/23 11/04/23 Rx cefadroxil 500 mg capsule 500 mg PO BID 10 days #20 caps 11/05/23 Rx tramadol 50 mg tablet 50 mg PO Q6 PRN pain #30 tabs 11/05/23 Rx Patient History Medical History (Updated 11/04/23 @ 19:00 by Deepthi Mcfarland MD) Elevated hemoglobin A1c Per records- Hgb A1C 5.8 on 10/10/23 History of ectopic s/p salpingectomy GERD (gastroesophageal reflux disease) Well controlled and stable History of uterine cancer dx'd > 5 years ago. 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 [place]many many [place]" [place] Hx of rheumatic fever as a child No significant murmur noted at PAT exam 10/10/23 HTN (hypertension) Anxiety (12/07/12) Peripheral neuropathy Restless leg syndrome Surgical History (Updated 11/04/23 @ 10:01 by Pablo Caldwell DO) History of laparoscopy History of History of total abdominal hysterectomy and bilateral salpingo-oophorectomy [place] teeth extracted Previous back surgery x 3 H/O shoulder surgery BL Family History Family/Other Breast cancer cousin Father Myocardial infarction Brother Diabetes Myocardial infarction Other No family history of adverse response to anesthesia Denies family history of Ovarian cancer Prostate cancer Colorectal cancer Social History Smoking Status: Never smoker Second Hand Exposure: No; Do You Dip or Chew Tobacco: No; Hx Alcohol Use: No Hx Substance Use: No Preferred Language: Azeri Communication Ability: Effective Visual Impairment: Limited Hearing Ability: Normal Bottom Loader Required: No Beliefs That Will Affect Care: None marital status: Current Living Situation: Spouse current occupational status: retired How many Children do You have: 2 How many Children do You have Comment: Pt. states that she had 1 miscarriage. Feels Safe at Home: Yes Childhood Exposure to Second-Hand Smoke: No Diet: regular caffeine: Yes (coffee) during the past year weight has: remained stable Dental Care, Regularly: Yes Physical Activity Frequency: Daily Seatbelt Use: always Sunscreen Use: No Do you think of yourself as: straight/heterosexual Gender Identity: Female Assistive Devices: Raised Toilet Seat Review of Systems Review of Systems: Per HPI/Subjective Physical Exam Physical Exam: General: well-appearing, no acute distress HEENT: PERRL, EOMI, conjunctivae clear without injection, anicteric sclerae, mildly dry mucous membranes, clear oropharynx without exudate or erythema Neck: supple, trachea midline, no thyromegaly, no JVD, no cervical lymphadenopathy CV: Regular rhythm, tachycardic, normal S1 and S2, no murmurs Resp: CTAB, no increased work of breathing, no crackles or wheezes Abd: Soft, nontender, nondistended, no guarding or rebound, no hepatosplenomegaly MSK: R shoulder in sling, ROM testing deferred Neuro: AOx3, no focal motor or sensory deficits Skin: no rashes or lesions, warm and dry Ext: no LE peripheral edema or erythema, capillary refill <2s in all four extremities, 2+ LE peripheral pulses b/l Results & Data Results & Data Vital Signs (Past 12 Hours) Vital Signs Temp Pulse Pulse Resp BP Pulse Ox O2 Del Method 11/04/23 18:10 36.9 C 100 H 16 146/77 H 94 Room Air 11/04/23 15:06 36.8 C 107 H 16 159/81 H 94 Room Air 11/04/23 13:41 36.8 C 99 H 16 144/81 H 94 Room Air 11/04/23 12:37 85 16 143/77 H 94 Room Air 11/04/23 12:10 98 H 16 162/82 H 94 Room Air 11/04/23 11:40 36.4 C L 88 16 137/78 94 Room Air 11/04/23 11:10 36.5 C 91 H 16 152/73 H 93 Room Air 11/04/23 10:55 36.2 C L 91 H 18 144/75 H 95 Room Air 11/04/23 10:45 93 H 16 150/74 H 95 Room Air 11/04/23 10:35 92 H 18 155/73 H 100 Room Air 11/04/23 10:25 100 H 17 107/79 100 Oxymask 11/04/23 10:18 36.0 C L 105 H 17 143/67 H 100 Oxymask 11/04/23 07:29 37 C 92 H 20 176/87 H 94 Room Air O2 Flow Rate 11/04/23 18:10 11/04/23 15:06 11/04/23 13:41 11/04/23 12:37 11/04/23 12:10 11/04/23 11:40 11/04/23 11:10 11/04/23 10:55 11/04/23 10:45 11/04/23 10:35 11/04/23 10:25 5 11/04/23 10:18 5 11/04/23 07:29 Resident Activity Tracking Resident Involvement: Resident Care Provided Care Provided: Adult Hospital Medicine (3) HTN (hypertension) Hypertension type: primary hypertension Qualified Code(s): I10 - Essential ( primary) hypertension (7) Depression Active/Remission status: currently active Depression Type: major depressive disorder Major depression episode severity: mild Major depression recurrence: recurrent Qualified Code(s): F33.0 - Major depressive disorder, recurrent, mild
[2023-11-04] MEDS ORDERED: SENNA 8.6 MG TAB PO SCH (21:00)
[2023-11-04] MEDS ORDERED: QUEtiapine FUMARATE 25 MG TABLET PO SCH (21:00)
[2023-11-04] MEDS: DOCUSATE SODIUM 100 MG CAP PO SCH (21:59)
[2023-11-05] MEDS: ceFAZolin 2000MG 2,000 MG/15 ML SYR IV SCH (00:18)
[2023-11-05] MEDS: KETOROLAC TROMETHAMINE 15 MG/ML VIAL IV SCH ×2 (00:21→05:16)
[2023-11-05] MEDS: ACETAMINOPHEN 500 MG TAB PO SCH ×2 (05:16→15:06)
[2023-11-05 06:07] LABS: BUN Creatinine Ratio 22.9 (10-20); Calcium 9.1 mg/dl (8.6-10.3); Creatinine Clr Calc Pharmacy 48.7 ml/min; Est GFR (African American) 66.1 ml/min; Magnesium 1.7 mg/dl (1.7-2.4); Potassium 3.6 mmol/L (3.5-5.1)
[2023-11-05 06:21] LABS: Hematocrit (blood only) 32.9 % (37.0-47.0); Hemoglobin 11.5 g/dl (12.0-16.0); Mean Corpuscular Hemoglobin 31.6 pg (25.0-34.0); Mean Corpuscular Volume 90.4 fL (80.0-100.0); Mean Platelet Volume 10.6 fL (9.4-12.4); Platelet Count 154 K/uL (130-400); RDW Coefficient of Variation 13.3 % (11.5-14.5); RDW Standard Deviation 44.1 fL (36.4-46.3); Red Blood Count 3.64 M/uL (4.20-5.40); White Blood Count 8.88 K/ul (4.8-10.8)
[2023-11-05] MEDS ORDERED: dexAMETHasone 4 MG TAB PO SCH (08:00)
[2023-11-05] MEDS: DOCUSATE SODIUM 100 MG CAP PO SCH (08:41)
[2023-11-05] MEDS ORDERED: ATORVASTATIN 40 MG TAB PO SCH (09:00)
[2023-11-05] MEDS ORDERED: LISINOPRIL/HCTZ 10/12.5MG TAB PO SCH (09:00)
[2023-11-05] MEDS ORDERED: ASPIRIN 81 MG ECTAB PO SCH (09:00)
[2023-11-05] MEDS ORDERED: MAGNESIUM OXIDE 400 MG TAB PO SCH (09:00)
[2023-11-05] MEDS ORDERED: PANTOprazole 40 MG TAB PO SCH (09:00)
[2023-11-05] MEDS ORDERED: DULoxetine HCL 60 MG CAP PO SCH (09:00)
[2023-11-05] MEDS ORDERED: MULTIVITAMIN TAB PO SCH (09:00)
[2023-11-05] MEDS ORDERED: POTASSIUM CHLORIDE CRTAB 20 MEQ TABCR PO SCH (09:00)
--- NOTE | 2023-11-05 09:58 | Orthopedic Progress Note ---
Date of Service November 05, 2023 Assessment & Plan (1) Status post reverse total replacement of right shoulder: Overall she is doing quite well today with good pain control to the right shoulder. She will work with physical therapy later this morning to work on range of motion exercises of the right upper extremity. She is aware of the block may remain for the next 24 hours or so and should start wearing off here soon. She can be discharged home later this morning pending physical therapy evaluation. She will follow-up with orthopedics in 2 weeks for postoperative care. Subjective . Mayelin was seen and evaluated this morning resting comfortably in bed in no apparent distress. She does note that her dressing needed changed yesterday to some drainage but has been clean since. She notes that her arm is still numb from the block. She has been up and out of bed with no significant issues. She denies any other concerns today. Review of Systems All systems reviewed & are unremarkable except as noted in HPI & below. Physical Exam . On physical examination of the right shoulder, dressings are clean, dry, intact. Her arm is currently immobilized in a sling. Altered sensation secondary to nerve block. She has slight movement in all 5 digits. +2 radial pulse. Less than 2-second capillary refill. Neurovascular intact. Results & Data Results & Data Laboratory Results . Diagnostic Findings . Postoperative x-rays of the right shoulder show prosthesis to be in anatomical alignment with no signs of fracture complication or loosening. PG Care Time/CCT Total # of Minutes Spent Total Time Spent with Patient: Total time spent is greater than 50% in coordination of care (as documented) at patient's floor/unit and/or counseling patient: Coding Level of Care Code 76330 Post Operative Follow-Up Diagnoses Status post reverse total replacement of right shoulder Z96.611
--- NOTE | 2023-11-05 10:00 | Discharge Summary ---
Date of Service November 05, 2023 Admission HPI (Per Admitting) Mayelin is a pleasant 77-year-old female who had a right rotator cuff repair done by Dr. Zaragoza in 2008. She initially did well with that. She then began having more pain. She was then pulling a ripcord. Her right shoulder has been doing worse and worse. She is unable to sleep at night. She is having trouble doing anything away from her body or up overhead. She has a lot of weakness in her shoulder. X-ray shows signs of cuff tear arthropathy. I sent her for an MRI. 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 After failed conservative treatment, she has elected proceed with a right reverse shoulder arthroplasty. Admission Exam (Per Admitting) On physical examination of the right shoulder, she has decreased range of motion weakness throughout.. Principal Diagnosis Same as "Discharge Diagnosis" noted below under Discharge Instructions. Discharge Exam . On physical examination of the right shoulder, dressings are clean, dry, intact. Her arm is currently immobilized in a sling. Altered sensation secondary to nerve block. She has slight movement in all 5 digits. +2 radial pulse. Less than 2-second capillary refill. Neurovascular intact. Discharge Data Consultations 11/04/23 12:46 Consult Hospitalist Routine Procedures Performed Operation Date: 11/04/23 08:40 Actual Procedures p Right Reverse Total Shoulder Arthroplasty(Right) - Pablo Caldwell DO Ordered Studies 11/04/23 05:00 US - OR guided needle placemen Routine Hospital Course (1) Status post reverse total replacement of right shoulder: On November 04, 2023 Mayelin arrived at [facility] and underwent a right reverse total shoulder arthroplasty performed by Dr. Caldwell with no complications. She had a general anesthetic. Postoperatively, she was transferred to the PACU for immediate postoperative care and then transferred to the general orthopedic floor in stable condition. Her hospital course was uneventful. On postoperative day #1, her vital signs were stable and her pain was well-controlled. She participated well with physical therapy work on range of motion exercises. She was then discharged home in stable condition. She will follow-up in 2 weeks with orthopedics for postoperative care. PG Care Time/CCT Total # of Minutes Spent Total Time Spent with Patient: Total time spent is greater than 50% in coordination of care (as documented) at patient's floor/unit and/or counseling patient: Discharge Plan Discharge Items Patient Disposition: Home - Self-Care Reason For Visit: Right Shoulder Degenerative Joint Disease Discharge Diagnosis: Same Activity: Per Instructions section Non-emergency contact: Surgeon Call non-emergency contact if: your temperature is above 101.5, your wound has increased redness and your wound has increased drainage Follow-up/Referrals: Albina Dow MD [Primary Care Provider] - Diet: Regular Addtl Attending Provider Instructions: Activity and Therapy Recommendations: * If you are using [facility] then therapy will be provided at your home until they feel you have accomplished all of your goals. * If you are using [facility] then Physical Therapy will be provided until they feel you are ready to start Outpatient Physical Therapy. * If you are not using home therapy then Outpatient Physical Therapy should start about 3-5 days from your day of surgery. Therapy will last about 8-12 weeks * Wear your sling for 3 weeks, unless otherwise instructed. You may remove your sling to shower and to dress, but otherwise, you should be in your sling at all times, including while sleeping * The shoulder replacement is very stable and you can use your hand while in the sling * You were shown a series of exercises in the hospital. Do these exercises daily including the exercises you were shown in physical therapy. Medications: * Narcotic You will likely be sent home from the hospital with a prescription for the narcotic pain medication that worked best throughout your stay. * Cefadroxil -take the antibiotic twice a day for 10 days to help prevent infection. * Other medications may be prescribed for specific circumstances. If you have any questions, please call the office at . * Resume previous home medications unless otherwise instructed Dressing Care: Leave the Silverlon dressing in place for 7 days. After 7 days you may remove the dressing. If the incision is not draining then you may leave the kimberly open to air. If there is a little bit of drainage or if the kimberly are getting stuck on your clothing then cover the incision with a dry dressing. The kimberly will be removed at your 2 week follow-up appointment. Showering: You may shower with the Silverlon dressing in place. Do not let the shower spray hit the dressing directly. Pat the Silverlon dressing dry. If the dressing becomes wet underneath, then simply remove the dressing. Keep the incision dry until you are 7 days out from the day of surgery. After 7 days you may remove the Silverlon dressing and shower with the kimberly exposed. Let soapy water run over the kimberly and pat them dry. Do not scrub or soak the incision. Things To Watch For: * Drainage from the incision site that occurs more than one week after your surgery. * Increased redness at the incision site. * Fever above 102 degrees Fahrenheit. * Unusual chest pain or shortness of breath. * Call [facility] at with any of the above problems Follow-Up Visit: Follow-up with Dr. Caldwell's PA (Pablo Castro) 2-3 weeks after your day of surgery. He will remove your kimberly and answer any questions. If you have any additional questions or concerns, Dr Caldwell is usually in the office at the same time and will be available An appointment was probably scheduled when you signed-up for surgery in the office. If you have any questions call More detailed instructions as well as Frequently Asked Questions were provided in a folder by our office when you signed-up for surgery. Please review these instructions when you get home. If you have any further questions or concerns, please feel free to call the office at [phone] Pending Studies at Discharge: No Stand-Alone Forms: [facility], Smoking Cessation Medications and DC Order Prescriptions: New tramadol 50 mg Tablet 50 mg PO Q6 PRN (Reason: pain) Qty: 30 0RF cefadroxil 500 mg capsule 500 mg PO BID 10 Days Qty: 20 0RF Continued aspirin 81 mg tablet,delayed release (DR/EC) 81 mg PO QAM Qty: 30 2RF ibuprofen [Advil] 200 mg tablet 200 mg PO Q6H PRN (Reason: pain) Qty: 120 2RF [employer] 18-400-80 mg-mcg-mcg tablet 1 tab PO QAM Qty: 30 0RF Ocuvite Adult 50 Plus 250-5-1 mg capsule 1 cap PO QAM Qty: 30 2RF mecobalamin (vitamin B12) 1,000 mcg tablet,chewable 1,000 mcg PO QAM Lactobacillus acidophilus 1.5 mg (250 million cell) capsule 100 mmu cells PO QAM atorvastatin 40 mg tablet 40 mg PO QAM Qty: 90 1RF duloxetine 60 mg capsule,delayed release(DR/EC) 60 mg PO DAILY Qty: 90 3RF quetiapine [Seroquel] 50 mg tablet 50 mg PO HS Qty: 90 1RF clonazepam [Klonopin] 0.5 mg tablet 0.5 mg PO DAILY PRN (Reason: depression) Qty: 60 1RF lisinopril-hydrochlorothiazide 10-12.5 mg tablet 1 tab PO QAM garlic 400 mg tablet 400 mg PO QAM omeprazole 20 mg tablet,delayed release (DR/EC) 20 mg PO QAM potassium chloride 20 mEq tablet extended release 20 meq PO QAM magnesium oxide 200 mg magnesium tablet 400 mg PO QAM Discharge Orders: Discharge Order (Routine); Ordered 11/05/23 Ordered By: Jv Greene Admission Data Admit Date/Time: 11/04/23 10:28 Attending Provider: Pablo Caldwell Admit Provider: Pablo Caldwell Primary Care Provider: Albina Dow Other Providers: Hermes Carpenter Other Interventions: Discharge Summary Assessment (RN) Last Done: 11/05/23 09:21
--- NOTE | 2023-11-05 11:13 | Hospitalist Progress Note ---
Date of Service November 05, 2023 Assessment & Plan (1) Sinus tachycardia: (2) Status post reverse total replacement of right shoulder: Plan (1) Sinus tachycardia: -Now resolved 1b. Blurry vision: Possibly due to dehydration However, will r/o acute stroke Obtain MRI brain (2) Status post reverse total replacement of right shoulder: -Postoperative management per orthopedics (3) HTN (hypertension): -Mildly elevated BP since surgery, likely due to pain -Continue lisinopril/HCTZ, no medication adjustment needed -Anticipate some increase in BP with dexamethasone administration ordered by orthopedics, monitor BP (4) HLD (hyperlipidemia): -Continue atorvastatin (5) Prediabetes: -Deferring basal/bolus insulin -Diet-controlled -Check glucose in AM with BMP (6) Peripheral neuropathy: -Continue duloxetine, cyanocobalamin (7) Depression: -Continue duloxetine (8) Anxiety: -Continue duloxetine -Continue Klonopin PRN per home regimen (9) GERD (gastroesophageal reflux disease): -Continue pantoprazole (10) Insomnia: -Continue Seroquel (11) On aspirin at home: -Pt does take aspirin daily due to [facility] [place] in brother, though she was never advised by a physician to do this -May continue daily aspirin, currently little concern for bleeding/hemorrhage Admission and Anticipated Discharge Date Admission Date: November 04, 2023 Subjective patient seen and examined, stable post surgery Review of Systems Review of Systems: All systems reviewed are negative, apart from the ones contained in the history. Physical Exam Physical Exam: The patient is awake, alert and oriented 3, well developed and well nourished, normocephalic and atraumatic, lying in bed and in no acute distress. HEENT--PERRL, EOMI, mucous membranes and oropharynx mildly dry Neck--supple. No JVD. No bruits. Thyroid normal, trachea midline, no adenopathy. Heart--normal S1 and S2. No murmurs, rubs or gallops. Lungs--clear bilaterally, no respiratory distress, no accessory muscle use. Abdomen--normal bowel sounds and soft. Mild epigastric and left sided abdominal pain Extremities--no cyanosis or clubbing. No edema. Dermatologic--normal skin turgor, normal color, no abnormal lymph nodes, no rash. Neurologic--cranial nerves II through XII grossly intact. Rheumatologic--normal range of motion. Psychiatric--normal affect. Results & Data Results & Data Vital Signs (Past 12 Hours) Vital Signs Temp Pulse Pulse Pulse Resp BP Pulse Ox 11/05/23 09:21 97.9 F 75 74 16 119/75 93 11/05/23 08:34 97.9 F 75 16 119/75 93 11/05/23 08:29 77 11/05/23 04:17 97.9 F 74 18 107/66 92 O2 Del Method 11/05/23 09:21 11/05/23 08:34 Room Air 11/05/23 08:29 11/05/23 04:17 Room Air PG Care Time/CCT Total # of Minutes Spent Total Time Spent with Patient: Total time spent is greater than 50% in coordination of care (as documented) at patient's floor/unit and/or counseling patient: Coding Level of Care Code 05537 SUB INP/OBS CARE 2/35MIN Diagnoses Sinus tachycardia R00.0 Status post reverse total replacement of right shoulder Z96.611 Time Spent (min) 35
--- NOTE | 2023-11-05 15:19 | Magnetic Resonance Report ---
MR brain wo con CLINICAL HISTORY: blurry vision TECHNIQUE: Multiplanar and multisequence MR images of the brain were obtained without intravenous con trast. Comparison: None available at the time of this dictation. FINDINGS: No abnormal restricted diffusion is identified. Foci of T2 and FLAIR hyperintensity are noted in the paraventricular areas consistent with chronic small vessel ischemic disease. Ex vacuo ventriculomegal y and sulcal enlargement is noted compatible with diffuse volume loss. No mass is seen. There is no m ass effect or midline shift. There is no evidence of acute intraparenchymal hemorrhage. Susceptibilit y artifact in the left frontal lobe may represent a calcification. The corpus callosum, pituitary gla nd, and cerebellar tonsils appear grossly unremarkable. Flow voids of the major intracranial arterial vessels are identified. The imaged portions of the para nasal sinuses, mastoid air cells, and orbits are unremarkable. IMPRESSION: No acute abnormalities. ACT 112: Negative or not required by law. Electronically signed by: Sergio Bassett M.D. 11/05/2023 3:17 PM
--- NOTE | 2023-11-06 15:58 | Billing Data ---
Date of Service November 04, 2023 Coding Level of Care Code 80758 IN/OBS CONSULT LVL 3,45M
== END 2023-11-05 15:45 | disposition home or self-care (01) ==
LOC: ASU 07:03 → 3W 07:03 → 2N 21:10